=== PATIENT | male | born 1975 | race African-American/Black ===

== ENCOUNTER → 2018-04-17 | Outpatient (CLI) | payer SELFPAY ==
[~2018-04-17] MED LIST: BENICAR 20MG TA20 MG PO; BLOOD PRESSURE PILL; NO HOME MEDICATIONS
[2018-04-17 14:04] LABS: COLLECTION METHOD CLEAN CATCH
[2018-04-17 14:10] LABS: HEMATOCRIT 46.4 % (42.0-52.0); HEMOGLOBIN 15.4 g/dl (13.5-18.0); MEAN CELL VOLUME 84 fl (80.0-100.0); MEAN CORPUSCULAR HEMOGLOBIN 28 pg (27.0-31.0); MEAN CORPUSCULAR HGB CONC 33 g/dl (33.0-37.0); MEAN PLATELET VOLUME 9.7 fl (7.4-10.4); PLATELET COUNT 212 K/mm3 (130-400); RED BLOOD COUNT 5.53 M/mm3 (4.20-5.60); REDCELL DISTRIBUTION WIDTH-CV 13.3 % (11.5-14.5)
[2018-04-17 14:16] LABS: MUCOUS Present /lpf; PH 5 (5-8); SQUAMOUS EPITHELIAL 0-2 /hpf; URINE APPEARANCE Clear; URINE BACTERIA None Seen /hpf; URINE BILIRUBIN Negative (NEGATIVE); URINE BLOOD Negative (NEGATIVE); URINE COLOR Yellow; URINE GLUCOSE Negative (NEGATIVE); URINE KETONE Negative (NEGATIVE); URINE LEUKOCYTE ESTERASE Negative (NEGATIVE); URINE NITRATE Negative (NEGATIVE); URINE PROTEIN(semi-quant) Negative (NEGATIVE); URINE RBC 0-2 /hpf; URINE UROBILINOGEN >=4.0 mg/dL (NEGATIVE); URINE WBC 0-2 /hpf
[2018-04-17 14:27] LABS: ALBUMIN 4.5 gm/dL (3.5-5.0); CALCIUM 9.4 mg/dL (8.4-10.2); CREATININE, serum 1.09 mg/dL (0.66-1.25); MAGNESIUM 1.9 mg/dL (1.6-2.3); POTASSIUM 4.2 mmol/L (3.4-5.0); TOTAL PROTEIN 8.1 gm/dL (6.4-8.2); URIC ACID 7.2 mg/dL (3.5-8.5)
[2018-04-17 14:57] LABS: THYROID STIMULATING HORMONE 0.78 uIU/mL (0.465-4.680)
== END ==
LOC: COL.LAB 13:15
PROVIDERS: Nurse Practitioner Family
DX: R41.82 Altered mental status, unspecified (principal)

== ENCOUNTER → 2018-05-14 | Outpatient (CLI) | payer SELFPAY ==
[2018-05-14 16:22] LABS: CALCIUM 9.7 mg/dL (8.4-10.2); CREATININE, serum 1.08 (0.66-1.25); POTASSIUM 4.2 mmol/L (3.4-5.0)
== END ==
LOC: ZLAB.FHCC 15:19
DX: Z01.89 Encounter for other specified special examinations (principal)

== ENCOUNTER → 2018-06-09 | Outpatient (CLI) | payer SELFPAY ==
[2018-06-09 17:59] LABS: CALCIUM 9.9 mg/dL (8.4-10.2); CREATININE, serum 1.41 (0.66-1.25); POTASSIUM 3.9 mmol/L (3.4-5.0)
== END ==
LOC: ZLAB.FHCC 15:45
DX: Z01.89 Encounter for other specified special examinations (principal)

== ENCOUNTER → 2019-03-16 | Outpatient (CLI) | payer MEDICAID ==
[2019-03-16 13:45] LABS: CALCIUM 9.4 mg/dL (8.4-10.2); CHOLESTEROL RISK RATIO 7.1; CREATININE, serum 1.2 (0.66-1.25)
== END ==
LOC: ZLAB.FHCC 11:48
PROVIDERS: Family Medicine
DX: Z01.89 Encounter for other specified special examinations (principal)

== ENCOUNTER 2019-10-25 08:50 | Inpatient (IN) | payer MEDICAID ==
[~2019-10-25] VITALS: Ht 188 cm; Wt 126.5 kg
[2019-10-25 09:30] LABS: ALANINE AMINOTRANSFERASE 19 U/L (4-49); ALBUMIN 4.5 gm/dL (3.5-5.0); ALKALINE PHOSPHATASE 89 U/L (50-136); ANION GAP 8 mmol/L (7-16); AST,SGOT 29 U/L (15-37); BILIRUBIN,TOTAL 0.9 mg/dL (0.0-1.0); BLOOD UREA NITROGEN 10 mg/dL (9-20); CALCIUM 9.1 mg/dL (8.4-10.2); CARBON DIOXIDE 30 mmol/L (22-30); CHLORIDE 101 mmol/L (98-107); CREATININE, serum 1.25 (0.66-1.25); GLUCOSE 109 mg/dL (74-106); POTASSIUM 3.6 mmol/L (3.4-5.0); SODIUM 139 mmol/L (137-145); TOTAL PROTEIN 7.9 gm/dL (6.4-8.2)
[2019-10-25 09:35] LABS: EOS # 0.1 (0.0-0.7); EOS % 3.4 % (0-4.0); GRAN # 1.7 (1.4-6.5); GRAN % 39.7 % (42.2-75.2); HEMOGLOBIN 15.1 g/dl (13.5-18.0); LYMPH # 1.9 (1.2-3.4); LYMPH % 45.6 % (20.0-51.0); MEAN CELL VOLUME 86 fl (80.0-100.0); MEAN CORPUSCULAR HEMOGLOBIN 28 pg (27.0-31.0); MEAN CORPUSCULAR HGB CONC 33 g/dl (33.0-37.0); MEAN PLATELET VOLUME 9.5 fl (7.4-10.4); MONO # 0.4 (0.1-0.6); MONO % 10.1 % (1.7-9.3); PLATELET COUNT 221 K/mm3 (130-400); RED BLOOD COUNT 5.38 M/mm3 (4.20-5.60); REDCELL DISTRIBUTION WIDTH-CV 14.9 % (11.5-14.5)
[2019-10-25 09:36] LABS: INR 1.1 (0.8-3.0); PROTHROMBIN TIME 11.8 SECONDS (9.7-12.8)
[2019-10-25 09:38] LABS: PARTIAL THROMBOPLASTIN TIME 33.9 SECONDS (26.0-37.0)
[2019-10-25 09:43] LABS: TROPONIN-I < 0.012 ng/mL (0.000-0.035)
[2019-10-25 13:49] LABS: COLLECTION METHOD CLEAN CATCH
[2019-10-25 14:20] LABS: MUCOUS Present /lpf; PH 6 (5-8); SQUAMOUS EPITHELIAL 0-2 /hpf; URINE APPEARANCE Clear; URINE BACTERIA None Seen /hpf; URINE BILIRUBIN Negative (NEGATIVE); URINE BLOOD Negative (NEGATIVE); URINE COLOR Yellow; URINE GLUCOSE Negative (NEGATIVE); URINE KETONE Negative (NEGATIVE); URINE LEUKOCYTE ESTERASE Negative (NEGATIVE); URINE NITRATE Negative (NEGATIVE); URINE PROTEIN(semi-quant) Negative (NEGATIVE); URINE RBC 0-2 /hpf; URINE UROBILINOGEN >=4.0 mg/dL (NEGATIVE)
[2019-10-25] MEDS ORDERED: PRINIVIL20 MG PO (14:20)
[2019-10-25] MEDS ORDERED: NORVASC 10MG10 MG PO (14:20)
[2019-10-25] MEDS ORDERED: ZOCOR 40MG40 MG PO (14:21)
[2019-10-25] MEDS ORDERED: D3-5050000 IU PO (14:22)
[2019-10-25] MEDS ORDERED: ASPIRIN 81M81 MG/TA2 PO (14:23)
[2019-10-25] MEDS ORDERED: HYGROTON 2525 MG/TAB PO (14:24)
[2019-10-25 14:40] VITALS: BP 156/104; PULSE 55; TEMP 97.7
--- NOTE | 2019-10-25 15:21 | NUR ---
pt arrived to unit @ 1355 via WC. AOX4 with poor recollection. could not remember what meds he takes but was able to look up that he sees Dr Hdez. [facility] called and Dr Cárdenas is retired there but sees pt as volunteer in [facility]. Office called and were able to provide med list. pt states he has not been compliant with medications due to compliant issues. Wendy from [facility] states pt has a long history of memory problems and was to see Neurologist Dr Lynne but missed appt and has seen Dr Herrera in the past. PHI release form signed by pt and confirmed faxed to office. denies pain. standby assist. speech slurred with difficulty articulating words. PERRLA. strength equal all extremities. IV to R AC flushes easily. denies numb/tingling, vision changes, headache, one sided weakness. left for MRI @ 1500.
[2019-10-25 16:25] VITALS: BP 156/103; PULSE 63; TEMP 97.5
--- NOTE | 2019-10-25 16:34 | NUR ---
SWALLOW STUDY DONE. NO WATER GIVEN TO PATIENT BEFORE BEDSIDE STUDY DONE. CLEAR COUGH, NO S/S ASPIRATION NOTED. SPEECH SLURRED BUT ABLE TO CLEAR AND CONTROL SECRETIONS
[2019-10-25 19:25] VITALS: BP 159/89; PULSE 60; TEMP 98.5
--- NOTE | 2019-10-25 19:30 | NUR ---
PT SEEN BY DR JACOBO. ORDERS ENTERED BY INTERN. PT MADE AWARE OF NEW ORDERS. CONTINUED SLURRED SPEECH WITH GOOD SWALLOW. DENIES PAIN. LCTA. HRRR. ON TELE. ABLE TO MAKE NEEDS KNOWN. BED ALARM ON FOR SAFETY AND PT AGREES WITH PLAN. NO MORE CONFUSION THIS SHIFT. TOLERATED DINNER AND ATE 100%. MACHINE BUNCH MAKER SOCKS ON. CALL LIGHT WITHIN REACH. BEDSIDE REPORT GIVEN TO PINO/DIONE.
--- NOTE | 2019-10-25 19:35 | NUR ---
Received report from Bjorn. Seen patient awake, lying in bed. He is alert and oriented. He has some slurred speech. He denies pain. With INT on left AC. on room air. He is independent.
--- NOTE | 2019-10-25 20:14 | NUR ---
This nurse asked patient to sign in the authorization to release form for his medical records. Explained to him that we need a copy of medical records from Dr. Herrera and [facility]. Patient's significant other Jose Armando Morgan called for update on patient. She wanted to visit the patient tomorrow. Informed her of the visiting policies and visiting hours and she agreed on it.
[2019-10-25 23:32] VITALS: BP 153/86; PULSE 58; TEMP 98.3
[2019-10-26 03:26] VITALS: BP 171/103; PULSE 68; TEMP 97.5
--- NOTE | 2019-10-26 03:52 | NUR ---
Patient's blood pressure is 171/103. Hydralazine PRN given. Patient awake, lying in bed. He denies pain. He just asked about how to order food for breakfast. Informed him of the number to call and what time dietary opens. No other complains noted.
--- NOTE | 2019-10-26 06:06 | NUR ---
Patient had uneventful night. He states he's already bored. Denies pain. Patient still alert and oriented. Authorization for disclosure of health information has been faxed to [facility] and Dr. Warren.
[2019-10-26 06:58] LABS: BASO % 0.9 % (0.0-2.0); EOS # 0.2 (0.0-0.7); EOS % 3.3 % (0-4.0); GRAN % 43.8 % (42.2-75.2); HEMATOCRIT 45.7 % (42.0-52.0); HEMOGLOBIN 15.4 g/dl (13.5-18.0); LYMPH # 1.9 (1.2-3.4); LYMPH % 42.5 % (20.0-51.0); MEAN CELL VOLUME 84 fl (80.0-100.0); MEAN CORPUSCULAR HEMOGLOBIN 28 pg (27.0-31.0); MEAN CORPUSCULAR HGB CONC 34 g/dl (33.0-37.0); MEAN PLATELET VOLUME 9.5 fl (7.4-10.4); MONO # 0.4 (0.1-0.6); MONO % 9.3 % (1.7-9.3); PLATELET COUNT 216 K/mm3 (130-400); RED BLOOD COUNT 5.47 M/mm3 (4.20-5.60); REDCELL DISTRIBUTION WIDTH-CV 14.6 % (11.5-14.5)
[2019-10-26 07:12] LABS: CHOLESTEROL RISK RATIO 6.4; CREATININE, serum 1.04 (0.66-1.25); POTASSIUM 3.5 mmol/L (3.4-5.0)
[2019-10-26 07:38] VITALS: BP 151/97; PULSE 62; TEMP 97.8
--- NOTE | 2019-10-26 10:48 | NUR ---
Initial visit; Patient thanked Retail [employer] Sales Representative for looking in on him and offering God's blessings and keeping him in her prayers.
[2019-10-26 11:33] VITALS: BP 161/110; PULSE 66; TEMP 98.2
--- NOTE | 2019-10-26 12:52 | NUR ---
Overhauler Bus Truck attended clinical rounds with the team. Following rounds, SW met with patient to discuss discharge planning. Patient lives alone in [place] and receives primary care at the [facility]. Patient states he is still legally to Torri (ph#[phone]) but they are . Patient has two children, Guillremo (23) and Aliya (20). Patient obtains medications from [facility] and reports he just obtained Medicaid [employer] coverage last week, which should help with the cost of his medications. Patient does not use any DME and reports independence with ADLS. Patient states Raymond Landeros, criminal defense attorney is his DPOA but that Raymond just takes all his money. SW contacted Raymond Landeros's office to request copy of DPOA paperwork. KELIN will continue to follow.
[2019-10-26 16:46] LABS: TOTAL PROTEIN,CSF 59 mg/dL (15-45)
[2019-10-26 16:54] VITALS: BP 151/90; PULSE 73; TEMP 98
[2019-10-26 17:58] LABS: CSF APPEARANCE CLEAR; CSF COLOR COLORLESS; CSF RBC 233 /mm3 (0-0)
[2019-10-26 17:59] LABS: CSF MONONUCLEAR 100 % (70-100); CSF POLYMORPHONUCLEAR 0 % (0-6)
--- NOTE | 2019-10-26 19:10 | NUR ---
Received report from Marilee. Seen patient awake, sitting on the bedside. He denies pain. He is alert and oriented. He still says he's already bored. No other complains noted.
[2019-10-26 19:39] VITALS: BP 136/78; PULSE 75; TEMP 98.3
--- NOTE | 2019-10-26 19:49 | NUR ---
PT'S DAY WAS FRUSTRATING FOR HIM. HE FEELS LIKE NOTHING IS GETTING DONE. PT'S MRI AND LP WAS DONE TODAY, AND RESULTED. PT FEELS LIKE HE SHOULD BE ABLE TO GO HOME. HE MENTIONED SEVERAL TIMES HE HAS IMPORTANT THINGS TO TAKE CARE OF OUTSIDE THIS HOSPITAL, AND THAT HE NEEDS TO GET THEM TAKEN CARE OF. HIS CONTACT BLAIR GALLEGO IS VERY CONCERNED ABOUT HIS WELLBEING, AND DOES CALL MULTIPLE TIMES PER DAY FOR UPDATES. SHE IS TEXTING WITH THE PATIENT WELL, TRYING TO KEEP HIM FROM BEING AGITATED. THE PATIENT DID NOT NEED ANY HYDRALAZINE TODAY. PT IS RESTING COMFORTABLY IN HIS ROOM. REPORT GIVEN.
[2019-10-26 22:06] LABS: TRICYCLIC ANTIDEPRESS URINE NEGATIVE
[2019-10-27 00:01] VITALS: BP 105/61; PULSE 67; TEMP 97.7
[2019-10-27 04:02] VITALS: BP 95/61; PULSE 59; TEMP 97.6
--- NOTE | 2019-10-27 06:00 | NUR ---
PAtient had uneventful night. He slept most of the night. He denies pain.
[2019-10-27 07:21] LABS: BASO % 0.9 % (0.0-2.0); EOS # 0.1 (0.0-0.7); EOS % 2.6 % (0-4.0); GRAN # 1.9 (1.4-6.5); GRAN % 40.1 % (42.2-75.2); HEMATOCRIT 45.6 % (42.0-52.0); HEMOGLOBIN 15.3 g/dl (13.5-18.0); LYMPH # 2.1 (1.2-3.4); LYMPH % 45.2 % (20.0-51.0); MEAN CELL VOLUME 84 fl (80.0-100.0); MEAN CORPUSCULAR HEMOGLOBIN 28 pg (27.0-31.0); MEAN CORPUSCULAR HGB CONC 34 g/dl (33.0-37.0); MEAN PLATELET VOLUME 9.2 fl (7.4-10.4); MONO # 0.5 (0.1-0.6); MONO % 10.8 % (1.7-9.3); PLATELET COUNT 227 K/mm3 (130-400); REDCELL DISTRIBUTION WIDTH-CV 14.9 % (11.5-14.5)
[2019-10-27 07:39] LABS: CALCIUM 9.1 mg/dL (8.4-10.2); CREATININE, serum 1.27 (0.66-1.25); POTASSIUM 3.7 mmol/L (3.4-5.0)
[2019-10-27 07:41] VITALS: BP 138/93; PULSE 64; TEMP 97.9
--- NOTE | 2019-10-27 10:31 | NUR ---
Patient is alert and oriented. denies any pain. ambulated around the hallway fine with physical therapist this am. lumbar puncture still pending.
[2019-10-27] MEDS ORDERED: LIPITOR20 MG PO (11:05)
[2019-10-27] MEDS ORDERED: ZESTRIL 10MG10 MG PO (11:05)
[2019-10-27] MEDS ORDERED: NORVASC 10MG10 MG PO (11:07)
[2019-10-27 11:43] VITALS: BP 127/83; PULSE 57; TEMP 97.7
--- NOTE | 2019-10-27 13:55 | NUR ---
Scarf And Anneal Operator obtained DPOA documents from Raymond Landeros's office. Raymond and Alexa Landeros are designated as patient's DPOA for financial and health care. SW attended clinical rounds with the team and patient to discharge today. Patient's RN, Sharmila advised patient's called in and was asking about Home Health. SW met with patient and he states he thinks his (who he is from) needs to mind her own business. Patient states he is not interested in Home Health services at this time. Patient is only interested in attending his follow up appointments to continue getting updates on his plan of care. SW spoke with patient about his DPOA. Patient states he wants to be done with Raymond Landeros. SW advised she could assist with updating DPOA for Healthcare but that he would need to consult an state's attorney to update DPOA for finances. Patient verbalized understanding. Patient does not want to complete new DPOA for healthcare at this time because he wants to figure out who to designate. SW provided patient with blank DPOA for healthcare form. Later in the morning, patient's visitor, his neighbor Elisa requested to speak with SW. SW responded to patient's room and patient was in the shower. Elisa states she wants to know how best to help patient. SW stressed the importance of patient attending follow up appointments. Elisa requested phone number to [employer] and SW provided. No additional needs at this time.
--- NOTE | 2019-10-27 15:03 | NUR ---
Patient had a shower this am. INT discontinued. patient received information on PCP referral for the 10/28/19. education on new medication order for Atorvastatin, Lisinopril, High blood pressure, Altered mental status. Patient's neighbour/friend drove him home. Patient verbalize he has all his belonging with him.
--- NOTE | 2019-10-27 15:22 | NUR ---
green chain worker state patient refuse homehealth. RN verified with patient. patient confirmed he declined homehealth.
[2019-10-28 13:00] LABS: LYME DISEASE ANTIBODIES Negative (Negative)
[2019-11-08 14:51] LABS: CSF OLIG BD INTERPRETATION 0 bands (<2); CSF OLIGOCLONAL BANDING 0 bands (()); SE OLIGOCLONAL BANDING 0 bands (())
== END 2019-10-27 12:30 | disposition home or self-care (01) | DRG 59 ==
LOC: COL.ER 08:50 → MEDICAL 12:51
PROVIDERS: Emergency Medicine; Physician Assistant; Psychiatry & Neurology Neurology; ADMIT Internal Medicine
DX: G35 Multiple sclerosis (principal); I16.1 Hypertensive emergency; G93.40 Encephalopathy, unspecified; E78.5 Hyperlipidemia, unspecified; F17.210 Nicotine dependence, cigarettes, uncomplicated; G47.33 Obstructive sleep apnea (adult) (pediatric); Z88.0 Allergy status to penicillin
CPT/HCPCS: 99232-AI; 99233-AI; 99239; A9585; J0360; J2060; Q9967

== ENCOUNTER 2019-11-26 14:38 | Emergency (ER) | payer MEDICAID ==
[~2019-11-26] VITALS: Ht 188 cm; Wt 127.3 kg
[~2019-11-26 14:38] MED LIST changes: +ASPIRIN 81M81 MG/TA2 PO; +D3-5050000 IU PO; +HYGROTON 2525 MG/TAB PO; +LIPITOR20 MG PO; +NORVASC 10MG10 MG PO; +PRINIVIL20 MG PO; +ZESTRIL 10MG10 MG PO; +ZOCOR 40MG40 MG PO
[2019-11-26 14:45] VITALS: TEMP 98
[2019-11-26 16:08] VITALS: BP 128/85; PULSE 58
== END 2019-11-26 16:26 | disposition home or self-care (01) ==
LOC: COL.ER 14:38
DX: I10 Essential (primary) hypertension (principal); G35 Multiple sclerosis; Z88.0 Allergy status to penicillin; Z79.82 Long term (current) use of aspirin

== ENCOUNTER 2020-01-08 21:22 | Emergency (ER) | payer MEDICAID ==
[~2020-01-08] VITALS: Ht 182.9 cm; Wt 127.3 kg
[2020-01-08 21:30] VITALS: TEMP 98.1
[2020-01-08 22:17] LABS: BASO % 0.8 % (0.0-2.0); EOS # 0.1 (0.0-0.7); GRAN % 39.7 % (42.2-75.2); HEMOGLOBIN 14.1 g/dl (13.5-18.0); LYMPH # 2.4 (1.2-3.4); LYMPH % 47.6 % (20.0-51.0); MEAN CELL VOLUME 86 fl (80.0-100.0); MEAN CORPUSCULAR HEMOGLOBIN 28 pg (27.0-31.0); MEAN CORPUSCULAR HGB CONC 33 g/dl (33.0-37.0); MONO # 0.5 (0.1-0.6); MONO % 9.7 % (1.7-9.3); PLATELET COUNT 199 K/mm3 (130-400); RED BLOOD COUNT 5.01 M/mm3 (4.20-5.60); REDCELL DISTRIBUTION WIDTH-CV 13.9 % (11.5-14.5)
[2020-01-08 22:22] LABS: ALANINE AMINOTRANSFERASE 39 U/L (4-49); ALBUMIN 4.5 gm/dL (3.5-5.0); ALKALINE PHOSPHATASE 92 U/L (50-136); ANION GAP 9 mmol/L (7-16); AST,SGOT 32 U/L (15-37); BILIRUBIN,TOTAL 0.8 mg/dL (0.0-1.0); BLOOD UREA NITROGEN 13 mg/dL (9-20); CALCIUM 9.1 mg/dL (8.4-10.2); CARBON DIOXIDE 29 mmol/L (22-30); CHLORIDE 102 mmol/L (98-107); CREATININE, serum 1.15 (0.66-1.25); GLUCOSE 102 mg/dL (74-106); LIPASE 77 U/L (23-300); POTASSIUM 4.1 mmol/L (3.4-5.0); SODIUM 140 mmol/L (137-145); TOTAL PROTEIN 7.4 gm/dL (6.4-8.2)
[2020-01-08 22:29] LABS: ALCOHOL(ethanol),MEDICAL < 10 mg/dL
[2020-01-08 22:51] LABS: THYROID STIMULATING HORMONE 0.913 uIU/mL (0.465-4.680)
[2020-01-08 23:09] LABS: COLLECTION METHOD CLEAN CATCH
[2020-01-08 23:16] LABS: MUCOUS Present /lpf; PH 5 (5-8); SQUAMOUS EPITHELIAL None Seen /hpf; URINE APPEARANCE Clear; URINE BACTERIA None Seen /hpf; URINE BILIRUBIN Negative (NEGATIVE); URINE BLOOD Negative (NEGATIVE); URINE COLOR Yellow; URINE GLUCOSE Negative (NEGATIVE); URINE KETONE Negative (NEGATIVE); URINE LEUKOCYTE ESTERASE Negative (NEGATIVE); URINE NITRATE Negative (NEGATIVE); URINE PROTEIN(semi-quant) Negative (NEGATIVE); URINE RBC 0-2 /hpf; URINE UROBILINOGEN >=4.0 mg/dL (NEGATIVE)
[2020-01-08 23:23] VITALS: BP 138/84; PULSE 61
[2020-01-08 23:23] LABS: TRICYCLIC ANTIDEPRESS URINE NEGATIVE
== END 2020-01-08 23:23 | disposition home or self-care (01) ==
LOC: COL.ER 21:22
PROVIDERS: Emergency Medicine
DX: R41.0 Disorientation, unspecified (principal); I10 Essential (primary) hypertension; E78.00 Pure hypercholesterolemia, unspecified; F17.210 Nicotine dependence, cigarettes, uncomplicated; Z88.0 Allergy status to penicillin; Z79.82 Long term (current) use of aspirin

== ENCOUNTER 2020-03-08 12:31 | Emergency (ER) | payer MEDICAID ==
[~2020-03-08] VITALS: Ht 185.4 cm; Wt 127.3 kg
[2020-03-08 12:38] VITALS: TEMP 98.4
[2020-03-08 13:28] LABS: BASO % 0.8 % (0.0-2.0); EOS % 1.1 % (0-4.0); GRAN # 1.6 (1.4-6.5); GRAN % 41.2 % (42.2-75.2); HEMATOCRIT 45.1 % (42.0-52.0); HEMOGLOBIN 14.7 g/dl (13.5-18.0); LYMPH # 1.8 (1.2-3.4); LYMPH % 46.5 % (20.0-51.0); MEAN CELL VOLUME 85 fl (80.0-100.0); MEAN CORPUSCULAR HEMOGLOBIN 28 pg (27.0-31.0); MEAN CORPUSCULAR HGB CONC 33 g/dl (33.0-37.0); MEAN PLATELET VOLUME 9.8 fl (7.4-10.4); MONO # 0.4 (0.1-0.6); MONO % 10.1 % (1.7-9.3); PLATELET COUNT 197 K/mm3 (130-400); RED BLOOD COUNT 5.28 M/mm3 (4.20-5.60); REDCELL DISTRIBUTION WIDTH-CV 13.5 % (11.5-14.5)
[2020-03-08 13:35] LABS: ALANINE AMINOTRANSFERASE 24 U/L (4-49); ALBUMIN 4.4 gm/dL (3.5-5.0); ALKALINE PHOSPHATASE 82 U/L (50-136); ANION GAP 9 mmol/L (7-16); AST,SGOT 23 U/L (15-37); BILIRUBIN,TOTAL 0.9 mg/dL (0.0-1.0); BLOOD UREA NITROGEN 13 mg/dL (9-20); CALCIUM 9.2 mg/dL (8.4-10.2); CARBON DIOXIDE 30 mmol/L (22-30); CHLORIDE 101 mmol/L (98-107); CREATINE KINASE 206 U/L (55-170); CREATININE, serum 1.28 (0.66-1.25); GLUCOSE 107 mg/dL (74-106); INR 1.2 (0.8-3.0); PROTHROMBIN TIME 13.2 SECONDS (9.7-12.8); SODIUM 139 mmol/L (137-145); TOTAL PROTEIN 7.9 gm/dL (6.4-8.2)
[2020-03-08 13:57] LABS: ALCOHOL(ethanol),MEDICAL < 10 mg/dL; TROPONIN-I < 0.012 ng/mL (0.000-0.035)
[2020-03-08 14:45] LABS: COLLECTION METHOD CLEAN CATCH
[2020-03-08 14:54] LABS: MUCOUS Present /lpf; PH 6 (5-8); SQUAMOUS EPITHELIAL 0-2 /hpf; URINE APPEARANCE Clear; URINE BACTERIA None Seen /hpf; URINE BILIRUBIN Negative (NEGATIVE); URINE BLOOD Negative (NEGATIVE); URINE COLOR Yellow; URINE GLUCOSE Negative (NEGATIVE); URINE KETONE Negative (NEGATIVE); URINE LEUKOCYTE ESTERASE Negative (NEGATIVE); URINE NITRATE Negative (NEGATIVE); URINE PROTEIN(semi-quant) 1+ (NEGATIVE); URINE RBC 0-2 /hpf
[2020-03-08 15:15] LABS: TRICYCLIC ANTIDEPRESS URINE NEGATIVE
[2020-03-08 15:21] VITALS: BP 135/92; PULSE 51
== END 2020-03-08 15:25 | disposition home or self-care (01) ==
LOC: COL.ER 12:31
PROVIDERS: Nurse Practitioner Primary Care
DX: R41.0 Disorientation, unspecified (principal); R42 Dizziness and giddiness; I10 Essential (primary) hypertension; G35 Multiple sclerosis; K35.80 Unspecified acute appendicitis; E78.00 Pure hypercholesterolemia, unspecified; F17.210 Nicotine dependence, cigarettes, uncomplicated; Z88.0 Allergy status to penicillin; Z79.82 Long term (current) use of aspirin
CPT/HCPCS: J7030

== ENCOUNTER → 2020-10-06 | Outpatient (CLI) | payer MEDICAID ==
[2020-10-06 14:42] LABS: BASO # 0.1 (0.0-0.2); BASO % 1.1 % (0.0-2.0); EOS # 0.1 (0.0-0.7); EOS % 1.5 % (0-4.0); GRAN # 1.9 (1.4-6.5); GRAN % 41.3 % (42.2-75.2); HEMATOCRIT 46.7 % (42.0-52.0); HEMOGLOBIN 15.4 g/dl (13.5-18.0); LYMPH # 2.1 (1.2-3.4); LYMPH % 46.4 % (20.0-51.0); MEAN CELL VOLUME 84 fl (80.0-100.0); MEAN CORPUSCULAR HEMOGLOBIN 28 pg (27.0-31.0); MEAN CORPUSCULAR HGB CONC 33 g/dl (33.0-37.0); MEAN PLATELET VOLUME 10.6 fl (7.4-10.4); MONO # 0.4 (0.1-0.6); MONO % 9.5 % (1.7-9.3); PLATELET COUNT 212 K/mm3 (130-400); RED BLOOD COUNT 5.56 M/mm3 (4.20-5.60)
== END ==
LOC: ZCOL.LAB 13:13
PROVIDERS: Emergency Medicine
DX: E78.5 Hyperlipidemia, unspecified (principal); E03.9 Hypothyroidism, unspecified; N39.0 Urinary tract infection, site not specified

== ENCOUNTER → 2020-10-09 | Outpatient (CLI) | payer MEDICAID ==
[2020-10-09 12:35] LABS: ALBUMIN 4.1 gm/dL (3.5-5.0); BILIRUBIN,TOTAL 0.5 mg/dL (0.0-1.0); CALCIUM 9.1 mg/dL (8.4-10.2); CHOLESTEROL RISK RATIO 3.7; CREATININE, serum 0.95 (0.66-1.25); POTASSIUM 4.1 mmol/L (3.4-5.0); TOTAL PROTEIN 7.2 gm/dL (6.4-8.2)
[2020-10-09 13:08] LABS: THYROID STIMULATING HORMONE 0.929 uIU/mL (0.350-4.940)
== END ==
LOC: ZCOL.LAB 11:12
PROVIDERS: Family Medicine
DX: I10 Essential (primary) hypertension (principal); E78.5 Hyperlipidemia, unspecified

== ENCOUNTER → 2021-05-07 | Outpatient (CLI) | payer MEDICAID | LOC: ZCOL.LAB 16:05 | DX: R79.89 Other specified abnormal findings of blood chemistry (principal) ==

== ENCOUNTER → 2021-10-25 | Outpatient (CLI) | payer MEDICARE, MEDICAID ==
[2021-10-25 11:53] LABS: ALBUMIN 4.3 gm/dL (3.5-5.0); CALCIUM 9.5 mg/dL (8.4-10.2); CHOLESTEROL RISK RATIO 4.5; CREATININE, serum 1.2 mg/dL (0.72-1.25); POTASSIUM 3.7 mmol/L (3.5-4.5); THYROID STIMULATING HORMONE 0.643 uIU/mL (0.350-4.940); TOTAL PROTEIN 7.8 gm/dL (6.2-8.1)
[2021-10-25 12:20] LABS: EOS # 0.1 K/mm3 (0.0-0.7); EOS % 2.3 % (0.0-4.0); GRAN # 1.7 K/mm3 (1.4-6.5); GRAN % 44.2 % (42.2-75.2); HEMATOCRIT 45.2 % (42.0-52.0); HEMOGLOBIN 14.9 g/dl (13.5-18.0); LYMPH # 1.7 K/mm3 (1.2-3.4); LYMPH % 43.5 % (20.0-51.0); MEAN CELL VOLUME 85 fl (80.0-100.0); MEAN CORPUSCULAR HEMOGLOBIN 28 pg (27-31); MEAN CORPUSCULAR HGB CONC 33 g/dl (33.0-37.0); MEAN PLATELET VOLUME 10.7 fl (7.4-10.4); MONO # 0.3 K/mm3 (0.1-0.6); MONO % 8.7 % (1.7-9.3); PLATELET COUNT 190 K/mm3 (130-400); REDCELL DISTRIBUTION WIDTH-CV 14.6 % (11.5-14.5)
== END ==
LOC: COL.LAB 11:30
PROVIDERS: Family Medicine
DX: E78.5 Hyperlipidemia, unspecified (principal); I10 Essential (primary) hypertension; Z79.899 Other long term (current) drug therapy